=== PATIENT | male | born 1955 | race Caucasian/White ===

== ENCOUNTER 2025-02-01 13:07 | Emergency (ER) | payer OTHER, SELFPAY ==
[2025-02-01 13:26] VITALS: BMI 32.5
[2025-02-01 13:36] VITALS: BP 116/82
--- NOTE | 2025-02-01 13:36 | ED.GENMED ---
History of Present Illness
General
Chief Complaint: Male Genito-Urinary Symptoms
Source: patient
Exam Limitations: none
Time Seen by Provider: 02/01/25 13:18
History of Present Illness
History of Present Illness:
See MDM
Past History
Past History
ED Past Medical History: None
ED Past Surgical History: None
Social History
Tobacco: Non-smoker
Alcohol: None
Phy Exam
Physical Exam
Physical Exam:
See MDM
Course
Orders/Labs/Results
Orders:
Orders
02/01/25 13:35
Whitt Placement- Treatment ONCE
Reason for insertion: Acute Retention
02/01/25 13:48
Urinalysis Reflex To Culture Urgent
Date Specimen was Collected: 02/01/25
Time Specimen was Collected: 13:46
Urine Microscopic Reflex Cult Urgent
Abnormal Lab Results
02/01/25
13:48
Ur Occult Blood Reflex 3+ A
(Negative)
Urine RBC 3-6 A /HPF
(0-2)
Urine Bacteria (Reflex) Few A
(Negative)
Vital Signs
Initial and Last Documented VS:
Initial Vital Signs
Temp
98.1 F
02/01/25 13:09
Last Documented Vital Signs
Temp Pulse Resp BP Pulse Ox
98.1 F 56 16 116/82 97
02/01/25 13:09 02/01/25 13:12 02/01/25 13:12 02/01/25 13:36 02/01/25 13:38
MDM/Problems Addressed
Differential Diagnosis Includes:
Note:
CHIEF COMPLAINT(S)
Urinary retention and discomfort.
HISTORY OF PRESENT ILLNESS
The patient is a 70-year-old male who presented with urinary retention. He was preparing for a colonoscopy, which was canceled due to his acute urinary retention. The patient has a history of an enlarged prostate but has not previously required
catheterization. According to the patient, he would occasionally experience difficulty urinating, primarily at night, but he has never undergone catheterization before. Recently, he found he was only able to pass a few drops of urine despite feeling
the need to urinate frequently.
The patient reports significant discomfort due to an inability to void. I explained the likely cause is related to benign prostatic hyperplasia (BPH), a common condition in men of his age, where the prostate enlarges and impedes urination by
blocking the urethra. Immediate relief is to be provided via the insertion of a Whitt catheter. The plan includes starting the patient on Flomax (tamsulosin) to alleviate the prostatic obstruction by relaxing the muscle fibers in the prostate.
The patient is informed about the temporary nature of the catheterization and the possibility of persistent urinary retention without medical intervention. 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
PLAN
1. Insertion of a Whitt catheter to relieve urinary retention.
2. Start the patient on Flomax (tamsulosin) to address prostatic enlargement.
3. Perform urinalysis to rule out infection.
4. Recommend the patient follow up with a urologist to manage prostate health and assess further treatment options.
5. Discuss with the patient regarding the potential benefits and risks of catheter continuation until the effects of Flomax are observed.
PHYSICAL EXAM:
General: Uncomfortable, pacing around the room
HEENT: protecting airway
Neck: appears supple
CV: No evidence of cyanosis
Resp: No accessory muscle use
Abd: Non-distended. Palpable bladder
Extremities: No deformities
Neuro: alert
Psych: Normal affect
Skin: Intact
DIFFERENTIAL DIAGNOSIS
The Differential Diagnosis includes, in no particular order and is not limited to:
1. Benign Prostatic Hyperplasia
2. Acute Urinary Tract Infection
3. Prostate Cancer
4. Urethral Stricture
5. Bladder Neck Obstruction
6. Neurogenic Bladder
7. Urinary Stone Disease
8. Medication-Induced Urinary Retention
9. Bladder Tumor
10. Postoperative Urinary Retention
CARE-UPDATE
02/01/25 - 14:50
The patient is showing significant improvement. We will maintain the Whitt catheter due to the risk of recurrent retention. A one-time dose of ciprofloxacin will be administered following the catheter insertion. Initiating Flomax treatment is
planned, presuming undiagnosed benign prostatic hyperplasia.
Disposition:
SUMMARY OF ENCOUNTER
The patient, a 70-year-old male, presented to the emergency department with acute urinary retention. A Whitt catheter was inserted, immediately draining approximately one liter of urine, which resolved his symptoms. The likely diagnosis of benign
prostatic hyperplasia (BPH) was discussed with the patient. Treatment with tamsulosin was initiated to alleviate prostatic obstruction.
PLAN
1. Begin treatment with tamsulosin to manage the prostatic enlargement.
2. Ensure urology follow-up for further management of prostate health and consideration of additional treatment options.
PROCEDURES
Whitt catheter insertion was performed to relieve urinary retention, successfully removing approximately one liter of urine.
PATIENT EDUCATION AND COUNSELING
The patient was informed about the likely diagnosis of benign prostatic hyperplasia. The importance of follow-up with a urologist was emphasized, and return precautions were discussed.
FOLLOW-UP INSTRUCTIONS
The patient was advised to follow up with a urologist to manage prostate health and assess further treatment options.
MEDICATION RECONCILIATION
1. Tamsulosin initiated to address prostatic enlargement and relieve urinary symptoms.
MEDICAL DECISION MAKING
- Complexity of Data Reviewed: Chronic conditions affecting care include an enlarged prostate. Differential diagnoses considered: Benign Prostatic Hyperplasia, Acute Urinary Tract Infection, Prostate Cancer, Urethral Stricture, Bladder Neck
Obstruction, Neurogenic Bladder, Urinary Stone Disease, Medication-Induced Urinary Retention, Bladder Tumor, Postoperative Urinary Retention.
Category 1: No additional tests or imaging were ordered.
Category 3: Discussion of management with the patient regarding the diagnosis, treatment plan, and the importance of follow-up with urology.
DIAGNOSIS
1. Benign Prostatic Hyperplasia (BPH) - ICD-10: N40.1
*Pulse Oximetry
SaO2: 97
Oxygen Mode of Delivery: Room air
Patient hypoxic: no
*Critical Care Note
Total Time (30-74mins, 75-104mins- exclusive of procedures): Not Applicable
ED Attending Note
-
Portions of this chart may have been created with voice recognition software.� Occasional wrong word or��sound alike� substitutions may have occurred due to the inherent limitations of voice recognition software.
Discharge Plan
Departure
Patient Disposition: Home (Routine Discharge)
Date of Disposition: 02/01/25
Time of Disposition: 14:52
Patient with high blood pressure during this ER visit?: No
Discharge Problem:
Acute urinary retention
Instructions: How to Care for Your Whitt Catheter, Male
Prescriptions:
New
tamsulosin [Flomax] 0.4 mg capsule
0.4 mg PO DAILY Qty: 30 0RF
Referrals:
Curt Davey MD [Active, Urology]
Amrita Bermeo DO [Family Provider, Family Practice]
Activity Restrictions/Additional Instructions:
Please return for any worsening symptoms.
You may return at any time if you have further concerns.
Please follow up with your doctor at the first available appointment, preferably this week.
Please make an appointment to see the urologist.
Thank you for choosing [facility].
Interventions
Interventions:
*Risk Screen - Suicide Last Done: 02/01/25 13:37
*General Assessment Last Done: 02/01/25 13:37
*Neglect/Abuse Screening Last Done: 02/01/25 13:37
*ED- Fall Risk Assessment Last Done: 02/01/25 13:37
*ED COVID-19 Vaccine History Last Done: 02/01/25 13:37
ED-Male Genitourinary Assessment Last Done: 02/01/25 13:37
Discharge Date and Time
Print Language: ALBANIAN
[2025-02-01 14:00] VITALS: BP 110/73
[2025-02-01 14:00] LABS: Urine Character Clear (Clear)
[2025-02-01 14:09] LABS: Urine Squamous Cell 0-2 /LPF (Few); Urine White Cell 0-2 /HPF (0-5)
[2025-02-01] MEDS: FLOMAX 0.4 MG PO (15:02)
[2025-02-01] MEDS: CIPRO 500 MG PO (15:02)
[2025-02-01 15:19] VITALS: BP 135/69
== END 2025-02-01 15:22 | disposition home or self-care (01) ==
LOC: EMR 13:07
PROVIDERS: EMERGENCY PHYSICIAN Student in an Organized Health Care Education/Training Program; FAMILY PHYSICIAN Family Medicine
DX: N40.1 Benign prostatic hyperplasia with lower urinary tract symptoms (principal); R33.8 Other retention of urine
CPT/HCPCS: 99283; 51702; 81003; 81015

== ENCOUNTER 2025-02-05 07:14 | Emergency (ER) | payer OTHER, SELFPAY ==
[2025-02-05 07:15] VITALS: BP 121/84
[2025-02-05 07:48] VITALS: BMI 32.6
--- NOTE | 2025-02-05 08:04 | ED.GENMED ---
History of Present Illness
General
Chief Complaint: Catheter/Tube Problem
Source: patient
Exam Limitations: none
Time Seen by Provider: 02/05/25 07:53
Nursing documentation reviewed up to this point in time: agreed with
History of Present Illness
History of Present Illness:
Patient is a 70-year-old male w/ history of hypertension, hyperlipidemia who presents to the emergency department with leaking davis catheter. Patient had davis catheter placed in emergency department on Tuesday afternoon secondary to acute urinary
retention. He reports that urine appeared to be draining normally over the weekend however yesterday evening he noticed a small amount of urine leakage around catheter site. He states that he woke up this morning and there was a significant amount
of urine leakage that occurred overnight. He has not had any urine output into his Davis bag since yesterday.
He does report some dysuria over the past day. No hematuria. No fever, chills, or abdominal pain.
He is scheduled for a follow-up appointment with Dr. Davey this .
Past History
Past History
ED Past Medical History: None
ED Past Surgical History: None
Social History
Tobacco: Non-smoker
Alcohol: None
Review of Systems
Review of Systems
Allergies reviewed?: Yes
All Other Systems: ROS reviewed and negative except as documented in HPI and ROS
Phy Exam
Physical Exam
Physical Exam:
Vitals: Patient's vital signs are stable. Afebrile
General: Patient is well appearing, no acute distress. Nontoxic appearing
Skin: Warm and dry, no rashes or lesions
Head: Normocephalic, atraumatic
Throat: Protecting airway
Neck: Normal ROM, no cervical spine tenderness
Cardiac: Regular rate and rhythm.
Pulm: No apparent respiratory distress. Lungs clear bilaterally.
Abdomen: Soft and nontender. Nondistended.
: Davis catheter in place. No urine output in davis bag
Extremities: No evidence of cyanosis or edema
Neuro: Grossly intact
Psychiatric: Normal affect.
Course
Orders/Labs/Results
Orders:
Orders
02/05/25 08:25
Davis Placement- Treatment ONCE
Reason for insertion: Acute Retention
02/05/25 09:12
Urinalysis Reflex To Culture Urgent
Date Specimen was Collected: 02/05/25
Time Specimen was Collected: 09:11
Urine Microscopic Reflex Cult Urgent
Urine Culture Urgent
JAISON Source: U
Specimen Description:
Date Specimen was Collected: 02/05/25
Time Specimen was Collected: 09:11
Abnormal Lab Results
02/05/25
09:12
Ur Occult Blood Reflex 4+ A
(Negative)
Leukocyte Esterase Rfl 1+ A
(Negative)
Urine RBC >100 A /HPF
(0-2)
Urine Bacteria (Reflex) Few A
(Negative)
Urine Albumin (Reflex) 2+ A
(Neg - Trace)
Vital Signs
Initial and Last Documented VS:
Initial Vital Signs
Temp Pulse Resp BP Pulse Ox
98.4 F 81 16 121/84 96
02/05/25 07:15 02/05/25 07:15 02/05/25 07:15 02/05/25 07:15 02/05/25 07:15
Last Documented Vital Signs
Temp Pulse Resp BP Pulse Ox
98.4 F 81 16 121/84 96
02/05/25 07:15 02/05/25 07:15 02/05/25 07:15 02/05/25 07:15 02/05/25 08:04
MDM/Problems Addressed
Differential Diagnosis Includes:
Not limited to: Davis catheter complication, acute urinary retention, UTI, BPH, etc.
MDM/Problems Addressed:
70-year-old male presenting with leaking Davis catheter. Davis placed 4 days ago in ED secondary to acute urinary retention from likely BPH. No urine output in Davis bag since yesterday however significant urine leakage noted. Vitals stable.
Exam as above. Patient well-appearing, nontoxic. Abdomen soft, nontender, and nondistended. Davis catheter in place however no urine output in bag.
Suspect malpositioned Davis catheter/deflated balloon. Discussion with patient/patient's regarding repeat urinary retention if Davis catheter removed prematurely without appropriate voiding trial in office at urologist follow-up.
Patient agreeable to replacement of Davis in ED today�Will plan to replace and ensure draining properly. Given reports of dysuria�will obtain UA.
Update: Davis replaced successfully and draining urine. Urine does not appear infected on UA. Stable for discharge home with return precautions and urology follow-up this week.
Chronic conditions affecting care:
BPH
Acute Exacerbation and/or Progression of Chronic Illness:
Davis catheter complication
*Pulse Oximetry
SaO2: 96
Oxygen Mode of Delivery: Room air
Patient hypoxic: no
*EKG
Interpreted by ED Provider?: NA
*Audit Director Interpretation
Rate: Audit Director- N/A
*Critical Care Note
Total Time (30-74mins, 75-104mins- exclusive of procedures): Not Applicable
Data Reviewed
Review of Other/Old Records Reveals: Discharge Summary (ED discharge summary from 02/01/2025-Davis catheter placed secondary to acute urinary retention)
Patient Management
Escalation/DeEscalation of care consider admission/obs:
Abdomen not indicated�patient will follow-up with urology outpatient
ED Attending Note
-
Portions of this chart may have been created with voice recognition software.� Occasional wrong word or��sound alike� substitutions may have occurred due to the inherent limitations of voice recognition software.
Discharge Plan
Departure
Patient Disposition: Home (Routine Discharge)
Date of Disposition: 02/05/25
Time of Disposition: 10:04
Patient with high blood pressure during this ER visit?: No
Discharge Problem:
Displacement of Davis catheter
Instructions: How to Care for Your Davis Catheter, Male
Prescriptions:
No Action
tamsulosin [Flomax] 0.4 mg capsule
0.4 mg PO DAILY Qty: 30 0RF
Referrals:
Curt Davey MD [Active, Urology] - Keep scheduled appt
NONE,* [Family Provider, Internal Medicine]
Activity Restrictions/Additional Instructions:
RETURN TO THE EMERGENCY DEPARTMENT ANY FEVERS, SEVERE ABDOMINAL/BACK PAIN, DAVIS CATHETER NOT DRAINING, OR ANY OTHER CONCERNS
- As discussed�your Davis catheter was replaced while in the emergency department today. Your urinalysis did not show evidence of a UTI.
- Please continue to take Flomax as directed. Stay well-hydrated.
- Follow-up with urology for further evaluation/management on as scheduled.
Monitor your symptoms closely and return to the emergency department with any acute worsening/new symptoms or any other concern
Interventions
Interventions:
*Risk Screen - Suicide Last Done: 02/05/25 07:16
*General Assessment Last Done: 02/05/25 07:48
*Neglect/Abuse Screening Last Done: 02/05/25 07:16
*ED- Fall Risk Assessment Last Done: 02/05/25 07:48
*ED COVID-19 Vaccine History Last Done: 02/05/25 07:48
LU-Jyjtfd-Cecvkjwcdj Assessment Last Done: 02/05/25 07:48
ED-Male Genitourinary Assessment Last Done: 02/05/25 07:48
Discharge Date and Time
Print Language: ALGERIAN
[2025-02-05 09:35] LABS: Urine Character Cloudy (Clear)
[2025-02-05 09:51] LABS: Urine Red Blood Cell >100 /HPF (0-2); Urine Squamous Cell 0-2 /LPF (Few)
== END 2025-02-05 10:21 | disposition home or self-care (01) ==
LOC: EMR 07:14
PROVIDERS: Physician Assistant; EMERGENCY PHYSICIAN Emergency Medicine
DX: T83.021A Displacement of indwelling urethral catheter, initial encounter (principal); Y73.2 Prosthetic and other implants, materials and accessory gastroenterology and urology devices associated with adverse incidents; N40.1 Benign prostatic hyperplasia with lower urinary tract symptoms; R33.8 Other retention of urine; I10 Essential (primary) hypertension; E78.5 Hyperlipidemia, unspecified
CPT/HCPCS: 99283; 51702; 81003; 81015; 87086

== ENCOUNTER 2025-02-10 10:06 | Emergency (ER) | payer OTHER, SELFPAY ==
[2025-02-10 10:19] VITALS: BP 160/95
--- NOTE | 2025-02-10 10:41 | ED.GENMED ---
History of Present Illness
General
Chief Complaint: Urinary Symptoms
Source: patient
Exam Limitations: none
Time Seen by Provider: 02/10/25 10:26
Nursing documentation reviewed up to this point in time: agreed with
History of Present Illness
History of Present Illness:
Patient is a 70-year-old male who presents to the ER for evaluation. Patient had recent issues with urinary tension and just had his Whitt catheter removed on by Dr. Davey's office.
mL the night he felt the urge to urinate was unable to do so. He presents to the ER awake alert prior to my exam bladder scan was done by nurse that shows about 800 cc of urine. Patient is very uncomfortable with lower abdominal pressure tender to
the suprapubic region. He denies any fever chills. Mild back discomfort patient describes lower abdominal back bilaterally. Denies any nausea vomiting.
Initial Whitt previously was placed February 01 when patient presented for urinary retention
Past History
Past History
ED Past Medical History: None
ED Past Surgical History: None
Social History
Tobacco: Non-smoker
Alcohol: None
Phy Exam
General Physical Exam
General Presentation: no apparent distress
General age: appears stated age
General Skin: warm and dry
General Habitus: normal
General Mental: alert
General Hydration: appears well hydrated
Gastrointestinal Exam
Gastrointestinal Exam: soft and other (+ suprapubic tenderness )
Neurological Exam
Neurological Exam: alert and oriented x3
Musculoskeletal Exam
Musculoskeletal Exam: full ROM
Skin Exam
Skin Exam: normal color and warm/dry
Psychiatric Exam
Psychiatric Exam: normal mood/affect
Course
Orders/Labs/Results
Orders:
Orders
02/10/25 10:26
Lidocaine 2% [Lidocaine Uro-Jet 2%] 1 syringe .ROUTE .[facility]
02/10/25 10:44
IV Insert/Care/Rem.- Treatment PRN
02/10/25 11:11
Complete Blood Count/With Diff Urgent
Comprehensive Metabolic Panel Urgent
Urinalysis Reflex To Culture Urgent
Date Specimen was Collected: 02/10/25
Time Specimen was Collected: 10:54
Urine Microscopic Reflex Cult Urgent
02/10/25 13:14
CT Abd/pel Without Iv Or Oral Urgent
Comment:
Reason For Exam: back pain hematuria
Abnormal Lab Results
02/10/25
11:11
MPV 10.8 H fL
(7.4-10.4)
Absolute Lymphs (auto) 0.8 L 10^3/uL
(1.2-3.4)
Neutrophils % 77.6 H %
(42.2-75.2)
Lymphocytes % 9.8 L %
(20.5-51.1)
Glucose 105 H mg/dl
(70-99)
AST 15 L U/L
(17-59)
Ur Occult Blood Reflex 3+ A
(Negative)
Urine RBC 26-30 A /HPF
(0-2)
02/10/25 11:11
02/10/25 11:11
Vital Signs
Initial and Last Documented VS:
Initial Vital Signs
Temp Pulse Resp BP Pulse Ox
97.6 F 103 18 160/95 96
02/10/25 10:19 02/10/25 10:19 02/10/25 10:19 02/10/25 10:19 02/10/25 10:19
Last Documented Vital Signs
Temp Pulse Resp BP Pulse Ox
97.6 F 76 18 150/75 96
02/10/25 10:19 02/10/25 12:00 02/10/25 10:19 02/10/25 12:00 02/10/25 10:43
MDM/Problems Addressed
MDM/Problems Addressed:
Patient with history of recent Whitt catheter removal presents for urinary retention. Whitt catheter was inserted patient with relief. Patient did complain of some back pain therefore CAT scan was done CAT scan negative for stone report does
mention slight stranding of the fat stranding of prostate gland however patient denies any fevers normal white count no symptoms suggest prostatitis. I did review patient's incidental findings of coronary artery calcifications and the importance of
following with family doctor. He is followed by Dr. Davey of urology discussed close outpatient follow-up to call tomorrow.
To return if any worsening of symptoms.
*Radiology
Radiology exam reviewed: radiology read reviewed
*Pulse Oximetry
SaO2: 96
Oxygen Mode of Delivery: Room air
Patient hypoxic: no
*Critical Care Note
Total Time (30-74mins, 75-104mins- exclusive of procedures): Not Applicable
Data Reviewed
Review of Other/Old Records Reveals: Labs and Other (previous ED chart )
Source: patient
ED Attending Note
-
Portions of this chart may have been created with voice recognition software.� Occasional wrong word or��sound alike� substitutions may have occurred due to the inherent limitations of voice recognition software.
Discharge Plan
Departure
Patient Disposition: Home (Routine Discharge)
Date of Disposition: 02/10/25
Time of Disposition: 14:56
Patient with high blood pressure during this ER visit?: Yes
Condition: Fair
Covid-19: Not Applicable
Discharge Problem:
Acute urinary retention
Instructions: Urinary retention - Discharge instructions
Prescriptions:
No Action
tamsulosin [Flomax] 0.4 mg capsule
0.4 mg PO DAILY Qty: 30 0RF
Referrals:
Carlos Alberto Dhillon MD [Family Provider, Internal Medicine]
Curt Davey MD [Active, Urology]
Activity Restrictions/Additional Instructions:
Follow-up with urology in the next 2 days for reevaluation Whitt catheter removal. Return if any worsening of symptoms
Interventions
Interventions:
*Risk Screen - Suicide Last Done: 02/10/25 10:19
*General Assessment Last Done: 02/10/25 10:19
*Neglect/Abuse Screening Last Done: 02/10/25 10:19
ED-Male Genitourinary Assessment Last Done: 02/10/25 10:44
Discharge Date and Time
Print Language: VIETNAMESE
[2025-02-10 11:36] LABS: Hematocrit 41.0 % (39.0-52.0); Hemoglobin 14.0 g/dL (13.0-18.0); Mean Corp Hgb Conc. 34.1 g/dL (33.0-37.0); Mean Corpuscular Volume 86.3 fL (80.0-94.0); Nucleated Red Blood Cells % 0 % (-); Platelet Count 216 10^3/uL (130-400); Red Cell Dist. Width 13.2 % (11.5-14.5)
[2025-02-10 11:41] LABS: Urine Character Clear (Clear)
[2025-02-10 12:00] VITALS: BP 150/75
[2025-02-10 12:01] LABS: ALT (SGPT) 11 U/L (0-50); AST (SGOT) 15 U/L (17-59); Albumin 3.9 g/dl (3.5-5.0); Alkaline Phosphatase 92 U/L (38-126); Blood Urea Nitrogen 20 mg/dl (9-20); Calcium 9.5 mg/dl (8.4-10.2); Carbon Dioxide 30 mmol/L (22-30); Chloride 104 mmol/L (98-107); Glucose 105 mg/dl (70-99); Potassium 4.2 mmol/L (3.5-5.1); Sodium 141 mmol/L (135-145); Total Protein 6.8 g/dl (6.3-8.2); eGFR > 60.00
[2025-02-10 12:36] LABS: Urine Red Blood Cell 26-30 /HPF (0-2); Urine Squamous Cell None seen /LPF (Few); Urine White Cell 0-2 /HPF (0-5)
[2025-02-10 15:00] VITALS: BP 149/75
== END 2025-02-10 15:00 | disposition home or self-care (01) ==
LOC: EMR 10:06
PROVIDERS: Nurse Practitioner; EMERGENCY PHYSICIAN Emergency Medicine; FAMILY PHYSICIAN Internal Medicine
DX: R33.8 Other retention of urine (principal); I25.10 Atherosclerotic heart disease of native coronary artery without angina pectoris
CPT/HCPCS: 99284; 74176; 80053; 81003; 81015; 85025